=== PATIENT | male | born 1955 | race Caucasian/White ===

== ENCOUNTER 2018-11-19 05:11 | Day surgery (SDC) ==
[2018-11-12 09:32] LABS: HEMATOCRIT 43.4 % (42.0-52.0); HEMOGLOBIN 14.2 g/dL (14.0-18.0); MCH 29.4 PG (27-31); MCHC 32.7 g/dL (33-37); MCV 89.9 FL (81-99); RBC 4.83 XMIL (4.7-6.1); RDW 13.6 % (11.5-14.5); WBC 10.3 X1000 (4.8-10.8)
[2018-11-12 09:33] LABS: MPV 9.9 FL (7.4-10.4)
[2018-11-12 09:58] LABS: AGAP 12; BUN 17 mg/dL (8-22); CALCIUM 9.7 mg/dL (8.8-10.2); CHLORIDE 97 mmol/L (98-107); COSMO 282; ESTIMATED GFR > 60; GLUCOSE 150 mg/dL (70-104); POTASSIUM 4.1 mmol/L (3.5-5.1); SODIUM 139 mmol/L (136-145); TCO2 30 mmol/L (25-35)
--- NOTE | 2018-11-12 10:05 | EKG Report ---
Test Performed on : 11/12/2018 09:20:02 AM Test Reason : pat Blood Pressure : / mmHG Vent. Rate : 072 BPM Atrial Rate : 072 BPM P-R Int : 144 ms QRS Dur : 100 ms QT Int : 400 ms P-R-T Axes : 046 -17 032 degrees QTc Int : 438 ms Normal sinus rhythm. Cannot rule out Anterior infarct , age undetermined Abnormal ECG When compared with ECG of 22-OCT-2015 02:57, QT has shortened Confirmed by Zack MONTGOMERY, Fidel Russell ([id number]) on 11/12/2018 10:24:59 AM
[2018-11-19] MEDS ORDERED: REGLAN ONE (05:34)
[2018-11-19] MEDS ORDERED: PEPCID ONE (05:34)
[2018-11-19] MEDS ORDERED: KEFZOL 1 GM/D5W 2 GM/100 ML IVPB ONE (05:34)
[2018-11-19] MEDS ORDERED: GENTAMICIN 100 MG/NS 100 MG/100 ML IVPB ONE (05:34)
[2018-11-19] MEDS ORDERED: LR 1,000 ML ONE ×2 (05:35→09:27)
[2018-11-19] MEDS ORDERED: DIPRIVAN 1% ONE (06:11)
[2018-11-19] MEDS ORDERED: FENTANYL ONE (07:10)
[2018-11-19] MEDS ORDERED: NEO-SYNEPHRINE ONE (07:39)
[2018-11-19] MEDS ORDERED: SODIUM CHLORIDE 0.9% 10 ML ONE (07:39)
[2018-11-19] MEDS ORDERED: EPHEDRINE ONE (07:39)
[2018-11-19] MEDS ORDERED: ZOFRAN ONE (08:54)
[2018-11-19] MEDS ORDERED: DECADRON ONE (08:54)
[2018-11-19] MEDS ORDERED: B & O 15A SUPP ONE (08:58)
[2018-11-19] MEDS ORDERED: NORCO-10 ONE (09:45)
[2018-11-19] MEDS: MORPHINE ONE ×3 (09:45→10:00)
[2018-11-19] MEDS ORDERED: PHENERGAN IV PRN (10:00)
[2018-11-19] MEDS ORDERED: LR 1,000 ML IV SCH (10:00)
[2018-11-19] MEDS ORDERED: SODIUM CHLORIDE 0.9% INJ PRN (10:00)
[2018-11-19] MEDS ORDERED: BENADRYL LIQUID PO PRN (10:00)
[2018-11-19] MEDS ORDERED: B & O 15A SUPP PR PRN (10:00)
[2018-11-19] MEDS ORDERED: NORCO-5 PO PRN (10:00)
[2018-11-19] MEDS ORDERED: DITROPAN PO PRN (10:00)
[2018-11-19] MEDS ORDERED: NORCO-10 PO PRN (10:00)
[2018-11-19] MEDS ORDERED: NORCO-7.5 PO PRN (10:00)
[2018-11-19] MEDS ORDERED: APRESOLINE ONE (10:18)
--- NOTE | 2018-11-19 12:41 | OPERATIVE NOTE ---
PROCEDURE DATE: 11/19/2018 SURGEON: Osmin Briggs MD PREOPERATIVE DIAGNOSIS: Enlarged prostate with urinary retention. POSTOPERATIVE DIAGNOSIS: Enlarged prostate with urinary retention. PROCEDURES PERFORMED: 1. Cystoscopic exam. 2. Transurethral resection of the prostate. 3. Placement of suprapubic tube. ANESTHESIA: General via laryngeal mask. FINDINGS: Cystoscopic exam: Urethra-greater than 28-[place] without stricture. Prostate - coapting lateral lobes, elevated bladder neck, length approximately 7 cm. Bladder - normal ureteral orifices bilaterally. Grade 3 trabeculations, small cellules and diverticula throughout. There were changes of the bladder mucosa consistent with an indwelling Lopez catheter. INDICATIONS FOR PROCEDURE: This 63-year-old male has a long history of an enlarged prostate with obstructive voiding. He is on Flomax for his prostate. He developed urinary retention, and had multiple voiding trials without success. DESCRIPTION OF PROCEDURE: After informed consent was obtained from the patient and him receiving IV antibiotics, he was taken to the main OR cystoscopy room, placed in the supine position. General anesthesia via laryngeal mask was achieved. He was then placed in the low lithotomy position and prepped and draped in the usual sterile fashion for cystoscopic exam. A 21-[place] sheath cystoscope was passed in the patient's urethra, prostate, and bladder with findings as noted above. The bladder was left distended. The 20 cystoscope was removed. The 28-[place] resectoscope sheath was placed. The thick gyrus loop electrode was placed. Both ureteral orifices were visualized as well as the verumontanum. The procedure was started at the 6:00 position resecting tissue from the level of bladder neck to the level of the verumontanum. This had to be in 2 steps because of the length of the prostate. We proceeded in a counterclockwise direction up to the 2:00 position of the bladder neck. The resection was then started back at the 6:00 position, level of bladder neck, level of the verumontanum, proceeding in a clockwise direction to the 10:00 position. Tissue from the anterior prostatic urethra between the 2:00 and 10:00 positions were resected from the level of bladder neck, level of the verumontanum. Chips were removed from the bladder with the Ellik evacuators. Hemostasis was achieved with electrocautery. At completion, the channel was wide open and no bleeding areas were seen. Both ureteral orifices were intact. The verumontanum was intact. The resectoscope was removed. The 21-[place] sheath cystoscope was passed through the patient's urethra and in the bladder. The 70 degree lens was placed. The dome of the bladder was visualized as the bladder was distended. A stab incision was made 2 fingerbreadths above the pubic bone in the midline. The patient did have a very large pannus. The Rousch suprapubic tube introducer was passed through the stab incision, and down into the bladder under direct vision. After the introducer was completely in the bladder, the trocar was removed and a 16-[place] silicone Lopez catheter was passed through the sheath and into the bladder. The balloon was visualized as it was inflated. The sheath was removed. The suprapubic tube was sutured to the skin with 0 silk. The suprapubic tube was plugged. The cystoscope was removed. A 24-[place] 3-way Lopez catheter was passed through the patient's urethra, prostate, and bladder without difficulty. 40 mL of sterile water were placed in the Lopez balloon. The Lopez was placed to gravity drain. Suprapubic tube site was dressed with gauze and paper tape. He tolerated the procedure well. Estimated blood loss 300 mL. He was taken to the recovery room in good condition. cc: Osmin Briggs MD [facility]
[2018-11-19] MEDS: KEFZOL 1 GM/D5W 1 GM/50 ML IVPB IV SCH ×3 (13:38→22:18)
[2018-11-19] MEDS ORDERED: VALSARTAN 300 MG PO SCH (13:45)
[2018-11-19] MEDS: LABETALOL IV PRN ×2 (14:37→18:02)
[2018-11-19] MEDS: GLUCOPHAGE PO SCH (17:08)
[2018-11-19] MEDS: COREG PO SCH (20:29)
[2018-11-19] MEDS: PEPCID PO SCH (20:29)
[2018-11-19] MEDS: PERIDEX MT SCH (20:29)
[2018-11-19] MEDS: COLACE PO SCH (20:29)
[2018-11-19] MEDS ORDERED: LIPITOR PO SCH (21:00)
[2018-11-19] MEDS ORDERED: DIOVAN PO SCH (21:00)
[2018-11-20] MEDS: LABETALOL IV PRN (03:40)
[2018-11-20 06:53] LABS: HEMATOCRIT 39.1 % (42.0-52.0); HEMOGLOBIN 12.5 g/dL (14.0-18.0); MCH 29.4 PG (27-31); MPV 10.2 FL (7.4-10.4); RBC 4.25 XMIL (4.7-6.1); RDW 13.8 % (11.5-14.5); WBC 13.66 X1000 (4.8-10.8)
[2018-11-20] MEDS ORDERED: NEXIUM PO SCH (07:00)
[2018-11-20 07:20] LABS: AGAP 11; BUN 12 mg/dL (8-22); CALCIUM 8.5 mg/dL (8.8-10.2); CHLORIDE 99 mmol/L (98-107); COSMO 283; ESTIMATED GFR > 60; GLUCOSE 135 mg/dL (70-104); POTASSIUM 3.9 mmol/L (3.5-5.1); SODIUM 141 mmol/L (136-145); TCO2 31 mmol/L (25-35)
[2018-11-20 07:43] VITALS: BP 157/95
[2018-11-20] MEDS: PERIDEX MT SCH (08:02)
[2018-11-20] MEDS: GLUCOPHAGE PO SCH (08:02)
[2018-11-20] MEDS: COREG PO SCH (08:02)
[2018-11-20] MEDS: PEPCID PO SCH (08:02)
[2018-11-20] MEDS: COLACE PO SCH (08:02)
[2018-11-20] MEDS ORDERED: ZYLOPRIM PO SCH (09:00)
[2018-11-20] MEDS ORDERED: HYDROCHLOROTHIAZIDE PO SCH (09:00)
== END 2018-11-20 11:20 | disposition home or self-care (01) ==
LOC: 4N 05:11 → PAT 05:11 → OPS 05:11
PROVIDERS: ATTEND Urology
PROC: UR.TURP (2018-11-19 06:50)
CPT/HCPCS: 80048; 82948; 85027; 88305; 88313; 93005; 93010; 94799; A9270; J0360; J0690; J1100; J1580; J2270; J2370; J2405; J3010; J7120; XXXXX